=== PATIENT | female | born 1975 | race Caucasian/White ===

== ENCOUNTER 2019-04-20 19:20 | Emergency (ER) | payer MEDICARE, OTHER ==
--- NOTE | 2019-04-20 21:14 | ED ---
Psychiatric Complaint - HPI Summary HPI Summary: Pt is a 44 y/o F presenting to the ED with a chief psychiatric complaint. patienbt states she is overwhelmed with her life and all that is going on. Pts made a lethal overdose suicide attempt on friday that required intubation and ICU admission at [facility]. also, pt has been trying to take care of her 6 year old niece, deal with her own stress, and her own mental health issues. The pts is supposed to be released tomorrow which has caused her own increased stress. She reports high anxiety, but denies suicidal or homicidal thoughts. She just wanted to speak with mental health today. Denies physical sx, such as pain. - History Of Current Complaint Chief Complaint: EDPsychosocial Time Seen by Provider: 04/20/19 19:29 Accompanied By: alone Hx Obtained From: Patient, Other: - charlie from mental health Onset/Duration: Gradual Onset, Lasting Hours, Still Present Timing: Constant Severity Initially: Moderate Severity Currently: Severe Character: Anxious Aggravating Factor(s): Recent Stress Alleviating Factor(s): Nothing Associated Signs And Symptoms: Positive: Negative Has Suicidal: Denies: Thoughts Has Homicidal: Denies: Thoughts Recent Stressor(s): 's suicide attempt - Allergies/Home Medications Allergies/Adverse Reactions: Allergies Allergy/AdvReac Type Severity Reaction Status Date / Time gabapentin Allergy Swelling Verified 04/20/19 19:28 Of Face,Lips,& Throat lamotrigine [From Lamictal] Allergy Swelling Verified 04/20/19 19:28 Of Face,Lips,& Throat latex Allergy Rash Verified 04/20/19 19:28 IVP Dye Allergy Anaphylatic Uncoded 04/25/15 17:50 Shock Home Medications: Home Medications Amphetamine/Dextroamph ER(NF) [Adderal XR (NF)] 20 mg PO DAILY 04/20/19 [ History Confirmed 04/20/19] Prazosin HCl 2 mg PO QPM 04/20/19 [History Confirmed 04/20/19] Sertraline* [Zoloft*] 50 mg PO DAILY 04/20/19 [History Confirmed 04/20/19] PMH/Surg Hx/FS Hx/Imm Hx Previously Healthy: Yes Endocrine/Hematology History: Reports: Hx Anemia GI History: Reports: Other GI Disorders - gastric bypass History: Reports: Other Problems/Disorders - bilateral ureteral reflux with hydronephrosis Psychiatric History: Reports: Hx Depression, Hx Post Traumatic Stress Disorder, Other Psychiatric Issues/Disorders - ADD, mood d/o Denies: Hx Eating Disorder, Hx of Violent Episodes Against Others - Surgical History Surgery Procedure, Year, and Place: gastric bypass Infectious Disease History: No Infectious Disease History: Denies: History Other Infectious Disease, Traveled Outside the [place] in Last 30 Days - Family History Known Family History: Positive: Diabetes - Social History Alcohol Use: None Hx Substance Use: Yes Substance Use Type: Reports: Prescribed Substance Use Comment - Amount & Last Used: adderall Hx Tobacco Use: No Smoking Status (MU): Never Smoked Tobacco Review of Systems - ROS Summary Review of Systems Summary: Home Medications Medication Instructions Recorded Confirmed Type Amphetamine/Dextroamph ER(NF) 20 mg PO DAILY 04/20/19 04/20/19 History [Adderal XR (NF)] Prazosin HCl 2 mg PO QPM 04/20/19 04/20/19 History Sertraline* [Zoloft*] 50 mg PO DAILY 04/20/19 04/20/19 History Negative: Myalgia Positive: Anxious. Negative: Other - SI/HI All Other Systems Reviewed And Are Negative: Yes Physical Exam - Summary Physical Exam Summary: General: Obese, moderately-anxious appearing female. No acute distress. HEENT: Normocephalic, Atraumatic. Eyes: Conjuctiva normal, PERRL. Oropharynx: Clear, mucous membranes moist, (-) exudates. Neck: Soft, FROM, (-) lymphadenopathy, (-) thyromegaly, (-) JVD. Cardiovascular: Normal sinus rhythm, (-) murmur. Lungs: Clear to auscultation bilaterally (-) wheezes, (-) rales, (-) rhonchi. Abdomen: Soft, non-tender, non-distended, (-) organomegaly, normal bowel sounds. Back: (-) CVA tenderness Extremities: No edema. Skin: Warm, dry, (-) rash. Neuro: Alert and oriented x3, moves all extremities equally. No ataxia. No gait disturbance. No sensory deficit. Normal strength, normal sensation. Psychiatric: Moderately anxious appearing. Triage Information Reviewed: Yes Vital Signs On Initial Exam: Initial Vitals Temp Pulse Resp BP Pulse Ox 98.1 F 100 18 148/87 100 04/20/19 19:22 04/20/19 19:22 04/20/19 19:22 04/20/19 19:22 04/20/19 19:22 Vital Signs Reviewed: Yes Procedures - Sedation Patient Received Moderate/Deep Sedation with Procedure: No Diagnostics - Vital Signs Vital Signs Temp Pulse Resp BP Pulse Ox 04/20/19 19:22 98.1 F 100 18 148/87 100 - Laboratory Lab Statement: Any lab studies that have been ordered have been reviewed, and results considered in the medical decision making process. Course/Dx - Course Course Of Treatment: 44 year old female with increased emotional stress. no SI/ HI. patinet seen by mental health. advised benadryl as needed for sleep and anxiety. follow up this week with counselor. follow up sooner for any worsening symptoms. patient states her symtpoms have improved. feels safe for discharge home. - Differential Dx/Clinical Impression Provider Diagnosis: Panic disorder Discharge ED - Sign-Out/Discharge Documenting (check all that apply): Patient Departure - Discharge Plan Condition: Stable Disposition: HOME Patient Education Materials: Panic Disorder (ED), Anxiety (ED) Referrals: [facility] [Outside] Additional Instructions: Please immediately follow up with psychiatry at [facility]. As discussed, take 25mg Benadryl at bedtime to assist with your sleep, and take Benadryl 12.5mg every 6 hours as needed for your anxiety. Follow up with your current therapist. Return to the emergency department with any new or worsening symptoms. [address] [address] - Billing Disposition and Condition Condition: STABLE Disposition: Home - Attestation Statements Document Initiated by Scribe: Yes Documenting Scribe: Lynne Huerta Provider For Whom Scribe is Documenting (Include Credential): Susana Montenegro MD. Scribe Attestation: Lynne Guthrie, scribed for Susana Montenegro MD. on 04/21/19 at 0014. Scribe Documentation Reviewed: Yes Provider Attestation: The documentation as recorded by the scribe, Lynne Huerta accurately reflects the service I personally performed and the decisions made by me, Susana Montenegro MD. Status of Scribe Document: Viewed
[2019-04-20 21:34] VITALS: BP 135/82
== END 2019-04-20 21:32 | disposition home or self-care (01) ==
LOC: ED 19:20
DX: F41.0 Panic disorder [episodic paroxysmal anxiety] (principal); F32.9 Major depressive disorder, single episode, unspecified; F43.10 Post-traumatic stress disorder, unspecified
CPT/HCPCS: 99283